=== PATIENT | female | born 1980 | race Caucasian/White ===

== ENCOUNTER 2017-03-20 06:26 | Emergency (ER) | payer BC ==
[~2017-03-20] VITALS: Ht 154.9 cm; Wt 108.9 kg
[2017-03-20 06:37] VITALS: BP 167/80
--- NOTE | 2017-03-20 06:47 | PHYS DOC ---
Past Medical History Past Medical History: Anxiety, Depression Past Surgical History: Cholecystectomy Alcohol Use: Rarely Drug Use: None Adult General Chief Complaint Chief Complaint: FOOT INJURY PAIN HPI HPI Patient is a 37 year old female presents with complaints of injury to right foot and right ankle after missing a step going down the stairs and twisting her foot and ankle. Patient denies any other injuries, has no other complaints. Review of Systems Review of Systems Constitutional: Denies fever or chills [] Eyes: Denies injury HENT: Denies injury Respiratory: Denies cough or shortness of breath [] Cardiovascular: No injury GI: Denies injury Musculoskeletal: Denies back pain or joint pain. Yes to right ankle and right foot pain Integument: Denies rash or skin lesions [] Neurologic: Denies headache, focal weakness or sensory changes [] Allergies Allergies Allergies Coded Allergies Type Severity Reaction Last Updated Verified No Known Drug Allergies 03/20/17 No Physical Exam Physical Exam Constitutional: Well developed, well nourished, no acute distress, non-toxic appearance. [] HENT: Normocephalic, atraumatic Eyes: EOMI, conjunctiva normal, no discharge. [] Neck: Normal range of motion, no tenderness, no step-offs Cardiovascular: Normal perfusion Lungs & Thorax: No tachypnea Abdomen: No tenderness or distention Skin: Warm, dry, no erythema, no rash. [] Back: No tenderness, no step-offs Extremities: No tenderness, no cyanosis, no clubbing, ROM intact, no edema. Exception is the right foot which has swelling in the dorsal aspect, tenderness to palpation in the dorsal aspect of as well as the lateral ankle. NVI Neurologic: Alert and oriented X 3, normal motor function, no focal deficits noted. [] Psychologic: Affect normal, judgement normal, mood normal. [] Current Patient Data Vital Signs Vital Signs Date Time Temp Pulse Resp B/P (MAP) Pulse Ox O2 Delivery O2 Flow Rate FiO2 03/20/17 06:37 98.5 82 20 97 Room Air 98.5 EKG EKG [] Radiology/Procedures Radiology/Procedures [] Course & Med Decision Making Course & Med Decision Making Pertinent Labs and Imaging studies reviewed. (See chart for details) ankle and foot x-rays were found to be negative, this has been discussed with the patient. Patient is okayed with using Tylenol, ibuprofen, ice and caught for pain control. Instructions for elevation and cryotherapy were given. Strict return precautions have been discussed patient agrees to follow-up as directed. [] Dragon Disclaimer Dragon Disclaimer This electronic medical record was generated, in whole or in part, using a voice recognition dictation system. Departure Departure Impression: Primary Impression: Sprain of foot, right Additional Impression: Ankle sprain Disposition: HOME, SELF-CARE Condition: STABLE Referrals: ORALIA ARSHAD MD (PCP) Please follow-up with your doctor for recheck and reevaluation in 5-7 days. If the pain persists you may need to get X-rays done. He may use Tylenol, ibuprofen and or icy hot for pain control. Patient Instructions: Ankle Sprain, Cryotherapy, [id number], Foot Contusion, [id number] Problem Qualifiers Nani BUNDY MD Mar 20, 2017 06:47
--- NOTE | 2017-03-20 07:30 | RAD ---
Indication fall yesterday. Persistent pain. AP oblique and lateral views of the right foot were obtained. There is soft tissue swelling. No fracture or acute bony abnormality is seen.
--- NOTE | 2017-03-20 07:32 | RAD ---
Indication fall yesterday. Persistent pain. AP oblique and lateral views of the right ankle were obtained. No bony abnormality is seen
== END 2017-03-20 08:03 | disposition home or self-care (01) ==
LOC: ER 06:26
DX: S93.601A Unspecified sprain of right foot, initial encounter (principal); S93.401A Sprain of unspecified ligament of right ankle, initial encounter; F41.9 Anxiety disorder, unspecified; F32.9 Major depressive disorder, single episode, unspecified; X58.XXXA Exposure to other specified factors, initial encounter; Y93.89 Activity, other specified; Y92.89 Other specified places as the place of occurrence of the external cause; Y99.8 Other external cause status
CPT/HCPCS: 73610; 73630; 99284